=== PATIENT | male | born 1950 | race Caucasian/White ===

== ENCOUNTER → 2020-05-19 | Outpatient (CLI) | payer MEDICARE, OTHER ==
[~2020-05-19] MED LIST: ADVIL200 MG PO; CLARITIN10 MG PO; ELIQUIS 2.5 MG2.5 MG PO; GAVISCON ES TA1 EACH PO; LIPITOR TAB 1010 MG PO; MELATONIN5 M2 PO; MULTIVITAMIN1 EACH PO; NORVASC10 MG PO; PEPCID COMPLET1 EACH PO; PERCOCET 5/325 T1 EA PO; PRINIVIL10 MG PO; TYLENOL 500 MG500 MG PO; VITAMIN E600 UNIT PO
== END ==
LOC: LAB 10:04
DX: E78.5 Hyperlipidemia, unspecified (principal)
CPT/HCPCS: 36415; 80061; 84450; 84460

== ENCOUNTER → 2021-08-19 | Outpatient (CLI) | payer MEDICARE ==
[2021-08-19 12:24] LABS: HEMOGLOBIN 17.2 gm/dl (14.0-17.5); RED BLOOD COUNT 5.54 M/UL (4.20-5.50); WHITE BLOOD COUNT 7.3 K/UL (4.5-11.0)
[2021-08-19 12:37] LABS: BUN/CREATININE RATIO 19 (0-10)
== END ==
LOC: LAB 11:18
PROVIDERS: Nurse Practitioner
DX: E78.5 Hyperlipidemia, unspecified (principal); E11.9 Type 2 diabetes mellitus without complications; I10 Essential (primary) hypertension; R53.82 Chronic fatigue, unspecified
CPT/HCPCS: 36415; 80053; 80061; 81001; 84436; 84443; 84480; 85025